=== PATIENT | female | born 1980 | race Caucasian/White ===

== ENCOUNTER 2018-08-28 09:10 | Emergency (ER) | payer OTHER ==
[~2018-08-28] VITALS: Ht 152.4 cm; Wt 81.0 kg
[~2018-08-28 09:10] MED LIST: ERYTHROMYCIN BAS1 GM OD; LORTAB 7.57.5 MG PO; METHERGINE0.2 MG PO; MUCINEX600 MG PO; ZOFRAN4 MG/TAB PO
[2018-08-28 09:49] LABS: IMMATURE GRANULOCYTES 0.3 % (0.0-5.0); MEAN CORPUSCULAR HGB 31.3 pG CALC (26.0-32.0); MEAN CORPUSCULAR HGB CONC 34.3 g/L CALC (32.0-36.0); NEUT# 4.68 thou/uL (2.00-7.15); RED BLOOD COUNT 4.48 mill/uL (4.20-5.60); RED CELL DISTRI WIDTH 12.2 % (11.5-15.5)
[2018-08-28 09:56] LABS: HEMATOCRIT 40.8 % (37.0-47.0); MEAN CELL VOLUME 91.1 fL CALC (80.0-100.0)
[2018-08-28 10:20] LABS: ALBUMIN 4.1 g/dL (3.2-5.0); ALKALINE PHOSPHATASE 60 u/l (38-126); ANION GAP 12 (6-22 (CALC)); BILIRUBIN, TOTAL 0.4 mg/dL (0.0-1.4); BUN 10 mg/dL (7-17); BUN/CREATININE RATIO 12 (12-20 (CALC)); CARBON DIOXIDE 25 mmol/l (22-30); CHLORIDE 107 mmol/l (95-108); CREATININE 0.8 mg/dL (0.5-1.0); GFR > 60 ML/MIN (>=60 (CALC)); GFR FOR AFR.AMER. > 60 ML/MIN (>=60 (CALC)); LIPASE 71 u/l (23-300); POTASSIUM 4.2 mmol/l (3.5-5.1); SGOT/AST 21 u/l (14-36); SODIUM 140 mmol/l (137-146); TOTAL PROTEIN 7.3 g/dL (6.3-8.2)
[2018-08-28 10:44] LABS: URINE BILIRUBIN - DIPSTICK NEGATIVE (NEGATIVE); URINE BLOOD DIPSTICK LARGE (NEGATIVE); URINE COLOR YELLOW; URINE GLUCOSE - DIPSTICK NEGATIVE (NEGATIVE); URINE KETONE NEGATIVE (NEGATIVE); URINE NITRITE - DIPSTICK NEGATIVE (Negative); URINE PROTEIN - DIPSTICK NEGATIVE (NEG-TRACE); URINE SPECIFIC GRAVITY <=1.005; URINE UROBILINOGEN - DIPSTICK 0.2 E.U./dL (0.2)
[2018-08-28 10:47] LABS: BARBITURATES NEGATIVE (NEGATIVE); COCAINE NEGATIVE (NEGATIVE); METHADONE NEGATIVE (NEGATIVE); OXCYCODONE NEGATIVE (NEGATIVE); TETRAHYDROCANNABIONOL NEGATIVE (NEGATIVE); TRICYLIC ANTIDEPRESSANTS NEGATIVE (NEGATIVE)
[2018-08-28 10:49] LABS: URINE LEUK ESTERASE SMALL (NEGATIVE)
[2018-08-28 10:56] LABS: URINE BACTERIA FEW hpf; URINE RBC TNTC RBC/hpf (0-5); URINE SQUAMOUS EPITHELIAL CELL FEW EPI/hpf (0-FEW)
[2018-08-28] MEDS ORDERED: KEFLEX500 M1 PO (11:00)
[2018-08-28] MEDS ORDERED: TAM75CAP PO (11:00)
[2018-08-28 11:08] VITALS: BP 129/99
== END 2018-08-28 11:24 | DRG 153 ==
LOC: ED 09:10
PROVIDERS: Emergency Medicine
DX: J11.1 Influenza due to unidentified influenza virus with other respiratory manifestations (principal)

== ENCOUNTER 2019-02-14 07:14 | Emergency (ER) | payer SELFPAY ==
[~2019-02-14 07:14] MED LIST changes: +KEFLEX500 M1 PO; +TAM75CAP PO
== END 2019-02-14 07:25 | disposition left against medical advice (07) | DRG 951 ==
LOC: ED 07:14 → LWOBS 07:24
DX: Z91.19 Patient's noncompliance with other medical treatment and regimen (principal)

== ENCOUNTER 2019-03-01 21:37 | Emergency (ER) | payer SELFPAY ==
[~2019-03-01] VITALS: Ht 152.4 cm; Wt 60.0 kg
[2019-03-01 22:30] LABS: URINE BILIRUBIN - DIPSTICK NEGATIVE (NEGATIVE); URINE BLOOD DIPSTICK NEGATIVE (NEGATIVE); URINE COLOR YELLOW; URINE GLUCOSE - DIPSTICK NEGATIVE (NEGATIVE); URINE KETONE NEGATIVE (NEGATIVE); URINE LEUK ESTERASE NEGATIVE (NEGATIVE); URINE NITRITE - DIPSTICK NEGATIVE (Negative); URINE PROTEIN - DIPSTICK NEGATIVE (NEG-TRACE); URINE SPECIFIC GRAVITY <=1.005; URINE UROBILINOGEN - DIPSTICK 0.2 E.U./dL (0.2)
[2019-03-01] MEDS ORDERED: AMOXICILLIN500 MG PO (22:56)
[2019-03-01 23:30] VITALS: BP 129/91
== END 2019-03-01 23:31 | disposition home or self-care (01) | DRG 556 ==
LOC: ED 21:37
PROVIDERS: Family Medicine
DX: M25.572 Pain in left ankle and joints of left foot (principal); M54.5 Low back pain; J03.90 Acute tonsillitis, unspecified

== ENCOUNTER 2019-06-09 18:36 | Emergency (ER) | payer SELFPAY ==
[~2019-06-09 18:36] MED LIST changes: +AMOXICILLIN500 MG PO
== END 2019-06-09 18:48 | disposition left against medical advice (07) | DRG 951 ==
LOC: ED 18:36 → LWOBS 18:48
DX: Z53.21 Procedure and treatment not carried out due to patient leaving prior to being seen by health care provider (principal)

== ENCOUNTER 2020-04-30 11:34 | Emergency (ER) | payer SELFPAY ==
[~2020-04-30] VITALS: Ht 152.4 cm; Wt 81.0 kg
[2020-04-30] MEDS ORDERED: AMOXICILLIN500 M2 PO (12:37)
[2020-04-30 12:55] VITALS: BP 110/73
== END 2020-04-30 12:55 | disposition home or self-care (01) | DRG 159 ==
LOC: ED 11:34
DX: S03.2XXA Dislocation of tooth, initial encounter (principal); S00.511A Abrasion of lip, initial encounter; S80.812A Abrasion, left lower leg, initial encounter; S16.1XXA Strain of muscle, fascia and tendon at neck level, initial encounter; Y04.2XXA Assault by strike against or bumped into by another person, initial encounter; Y92.009 Unspecified place in unspecified non-institutional (private) residence as the place of occurrence of the external cause

== ENCOUNTER 2021-02-15 01:26 | Emergency (ER) | payer MEDICAID ==
[~2021-02-15 01:26] MED LIST changes: +AMOXICILLIN500 M2 PO
[2021-02-16] MEDS ORDERED: ZYRTEC10 MG PO (03:20)
== END 2021-02-15 01:36 | disposition left against medical advice (07) | DRG 951 ==
LOC: ED 01:26 → LWOBS 01:36
DX: Z53.21 Procedure and treatment not carried out due to patient leaving prior to being seen by health care provider (principal)

== ENCOUNTER 2021-02-16 02:31 | Observation (INO) | payer MEDICAID ==
[2021-02-16] MEDS ORDERED: ZYRTEC10 MG PO (03:20)
[2021-02-16 03:53] LABS: URINE BILIRUBIN - DIPSTICK NEGATIVE (NEGATIVE); URINE BLOOD DIPSTICK NEGATIVE (NEGATIVE); URINE COLOR YELLOW; URINE GLUCOSE - DIPSTICK NEGATIVE (NEGATIVE); URINE KETONE NEGATIVE (NEGATIVE); URINE LEUK ESTERASE NEGATIVE (NEGATIVE); URINE PROTEIN - DIPSTICK 30 mg/dL (NEG-TRACE); URINE UROBILINOGEN - DIPSTICK 0.2 E.U./dL (0.2)
[2021-02-16 03:58] LABS: URINE NITRITE - DIPSTICK NEGATIVE (Negative)
[2021-02-16 04:00] LABS: URINE WBC 0-2 WBC/hpf (0-5)
[2021-02-16 04:01] LABS: URINE BACTERIA FEW hpf; URINE EPITHELIAL CELLS MODERATE EPI/hpf (0-FEW)
[2021-02-16 04:12] LABS: HEMOGLOBIN 14.2 g/dl (12.0-16.0); IMMATURE GRANULOCYTES 0.1 % (0.0-5.0); MEAN CORPUSCULAR HGB 31.7 pG CALC (26.0-32.0); NEUT# 7.03 thou/uL (2.00-7.15); RED BLOOD COUNT 4.48 mill/uL (4.20-5.60); RED CELL DISTRI WIDTH 13.2 % (11.5-15.5)
[2021-02-16 04:27] LABS: ALBUMIN 3.6 g/dL (3.2-5.0); ALKALINE PHOSPHATASE 76 u/l (38-126); ANION GAP 11 (6-22 (CALC)); BUN 12 mg/dL (7-17); BUN/CREATININE RATIO 12 (12-20 (CALC)); CARBON DIOXIDE 23 mmol/l (22-30); CHLORIDE 105 mmol/l (95-108); GFR > 60 ML/MIN (>=60 (CALC)); GFR FOR AFR.AMER. > 60 ML/MIN (>=60 (CALC)); SGOT/AST 27 u/l (14-36); SODIUM 135 mmol/l (137-146); TOTAL PROTEIN 6.6 g/dL (6.3-8.2)
[2021-02-16 04:29] LABS: BILIRUBIN, TOTAL 0.6 mg/dL (0.0-1.4)
[2021-02-16 04:39] LABS: MYOGLOBIN 61 ng/mL (0 - 62)
[2021-02-16 08:20] VITALS: BP 138/97
[2021-02-16 12:27] VITALS: BP 150/109
[2021-02-16 14:45] VITALS: BP 144/95
[2021-02-16 19:00] VITALS: BP 133/99
[2021-02-17 04:30] VITALS: BP 122/65; BP 137/96
[2021-02-17 05:44] LABS: HEMATOCRIT 41.3 % (37.0-47.0); HEMOGLOBIN 13.5 g/dl (12.0-16.0); MEAN CELL VOLUME 96.9 fL CALC (80.0-100.0); MEAN CORPUSCULAR HGB 31.7 pG CALC (26.0-32.0); MEAN CORPUSCULAR HGB CONC 32.7 g/dL CAL (32.0-36.0); RED BLOOD COUNT 4.26 mill/uL (4.20-5.60); RED CELL DISTRI WIDTH 13.3 % (11.5-15.5)
[2021-02-17 06:25] LABS: BUN 14 mg/dL (7-17); BUN/CREATININE RATIO 13 (12-20 (CALC)); CALCULATED LDLCHOLESTEROL 60 mg/dL (62-129 (CALC)); CHLORIDE 99 mmol/l (95-108); CHOLESTEROL HDL RATIO 2.3 (<4.4 (CALC)); GFR > 60 ML/MIN (>=60 (CALC)); GFR FOR AFR.AMER. > 60 ML/MIN (>=60 (CALC)); HDL CHOLESTEROL 55 mg/dL (>=40); MAGNESIUM 1.6 mg/dL (1.6-2.3); POTASSIUM 3.7 mmol/l (3.5-5.1); SODIUM 134 mmol/l (137-146); TOTAL CHOLESTEROL 129 mg/dl (0-199); TOTAL TRIGLYCERIDES 72 mg/dl (30-149); VLDL CHOLESTROL 14 mg/dl (1-41 (CALC))
[2021-02-17 06:29] LABS: ANION GAP 11 (6-22 (CALC)); CARBON DIOXIDE 28 mmol/l (22-30)
[2021-02-17 07:32] VITALS: BP 128/83
[2021-02-17 10:50] VITALS: BP 127/94
[2021-02-17] MEDS ORDERED: LOPRESSOR25 MG PO (11:51)
[2021-02-17] MEDS ORDERED: LISINOPRIL20 M1 PO (11:51)
[2021-02-17] MEDS ORDERED: LASIX20 MG PO (11:51)
[2021-02-17 12:33] VITALS: BP 150/90
[2021-02-17 15:52] VITALS: BP 90/55
[2021-02-17 18:57] VITALS: BP 102/68
[2021-02-18 00:01] VITALS: BP 110/62
[2021-02-18 03:43] VITALS: BP 116/68
[2021-02-18 05:21] LABS: HEMATOCRIT 45.1 % (37.0-47.0); HEMOGLOBIN 14.7 g/dl (12.0-16.0); MEAN CELL VOLUME 97.4 fL CALC (80.0-100.0); MEAN CORPUSCULAR HGB 31.7 pG CALC (26.0-32.0); MEAN CORPUSCULAR HGB CONC 32.6 g/dL CAL (32.0-36.0); RED BLOOD COUNT 4.63 mill/uL (4.20-5.60); RED CELL DISTRI WIDTH 13.2 % (11.5-15.5)
[2021-02-18 05:33] LABS: ANION GAP 11 (6-22 (CALC)); BUN 18 mg/dL (7-17); BUN/CREATININE RATIO 17 (12-20 (CALC)); CARBON DIOXIDE 25 mmol/l (22-30); CHLORIDE 99 mmol/l (95-108); GFR > 60 ML/MIN (>=60 (CALC)); GFR FOR AFR.AMER. > 60 ML/MIN (>=60 (CALC)); SODIUM 131 mmol/l (137-146)
[2021-02-18 08:00] VITALS: BP 128/82
[2021-02-18 10:49] VITALS: BP 118/82
== END 2021-02-18 12:41 | disposition home or self-care (01) ==
LOC: ED 02:31 → ED-I 06:10 → ED 06:36 → MS2 06:36
PROVIDERS: Emergency Medicine; Nurse Practitioner; ADMIT Hospitalist; ATTEND Hospitalist
DX: I11.0 Hypertensive heart disease with heart failure (principal); I50.9 Heart failure, unspecified; R09.02 Hypoxemia; I95.9 Hypotension, unspecified; R06.83 Snoring; F15.10 Other stimulant abuse, uncomplicated; Z20.822 Contact with and (suspected) exposure to COVID-19
CPT/HCPCS: G0378; J1650; Q9967

== ENCOUNTER 2022-03-22 19:21 | Inpatient (IN) | payer MEDICAID ==
[2022-03-22] VITALS (14 sets, daily range): BP systolic 82–183; BP diastolic 59–148
[~2022-03-22] VITALS: Ht 152.4 cm; Wt 81.8 kg
[~2022-03-22 19:21] MED LIST changes: +LASIX20 MG PO; +LISINOPRIL20 M1 PO; +LOPRESSOR25 MG PO; +ZYRTEC10 MG PO
[2022-03-22] MEDS ORDERED: LASIX 40 MG TAB40 MG PO (20:22)
[2022-03-22] MEDS ORDERED: DILTIAZEM30 MG PO (20:22)
[2022-03-22] MEDS ORDERED: LISINOPRIL10 MG PO (20:23)
[2022-03-22 20:25] LABS: HEMATOCRIT 49.8 % (37.0-47.0); HEMOGLOBIN 16.3 g/dl (12.0-16.0); IMMATURE GRANULOCYTES 0.1 % (0.0-5.0); MEAN CELL VOLUME 94.3 fL CALC (80.0-100.0); MEAN CORPUSCULAR HGB 30.9 pG CALC (26.0-32.0); MEAN CORPUSCULAR HGB CONC 32.7 g/dL CAL (32.0-36.0); NEUT# 4.68 thou/uL (2.00-7.15); RED BLOOD COUNT 5.28 mill/uL (4.20-5.60); RED CELL DISTRI WIDTH 14.5 % (11.5-15.5)
[2022-03-22 20:39] LABS: ALBUMIN 4.3 g/dL (3.2-5.0); BUN 15 mg/dL (7-17); BUN/CREATININE RATIO 14 (12-20 (CALC)); CHLORIDE 103 mmol/l (95-108); CREATININE 1.1 mg/dL (0.5-1.0); GFR FOR AFR.AMER. > 60 ML/MIN (>=60 (CALC)); GFR OTHER RACES 54 ML/MIN (>=60 (CALC)); POTASSIUM 4.5 mmol/l (3.5-5.1); SODIUM 133 mmol/l (137-146)
[2022-03-22 20:41] LABS: INTERNATIONAL NORMALIZED RATIO 1.3 RATIO (0.7-1.3); PROTHROMBIN TIME 12.6 SECONDS (9.0-12.5)
[2022-03-22 20:50] LABS: D-DIMER 0.88 mg/L (0.19-0.60); MYOGLOBIN 44 ng/mL (0 - 62)
[2022-03-22 20:57] LABS: ALKALINE PHOSPHATASE 178 u/l (38-126); ANION GAP 19 (6-22 (CALC)); BILIRUBIN, TOTAL 2.1 mg/dL (0.0-1.4); CARBON DIOXIDE 16 mmol/l (22-30); SGOT/AST 48 u/l (14-36); TOTAL PROTEIN 8.2 g/dL (6.3-8.2)
[2022-03-23] VITALS (162 sets, daily range): BP systolic 27–207; BP diastolic 13–184
[2022-03-23 02:05] LABS: URINE BILIRUBIN - DIPSTICK SMALL (NEGATIVE); URINE BLOOD DIPSTICK NEGATIVE (NEGATIVE); URINE COLOR YELLOW; URINE GLUCOSE - DIPSTICK NEGATIVE (NEGATIVE); URINE KETONE TRACE mg/dL (NEGATIVE); URINE LEUK ESTERASE NEGATIVE (NEGATIVE); URINE NITRITE - DIPSTICK NEGATIVE (Negative); URINE PROTEIN - DIPSTICK 100 mg/dL (NEG-TRACE); URINE SPECIFIC GRAVITY >=1.030
[2022-03-23 02:06] LABS: URINE RBC 0-2 RBC/hpf (0-5)
[2022-03-23 02:07] LABS: URINE AMORPH SEDIMENT MANY hpf (NONE-FEW); URINE MUCUS FEW hpf (NONE-FEW); URINE SQUAMOUS EPITHELIAL CELL FEW EPI/hpf (0-FEW); URINE WBC 0-2 WBC/hpf (0-5)
[2022-03-23] MEDS ORDERED: TYLENOL500 MG PO (10:02)
[2022-03-23] MEDS ORDERED: COREG6.25 MG PO (10:06)
[2022-03-23 20:30] LABS: HEMATOCRIT 49.5 % (37.0-47.0); HEMOGLOBIN 15.5 g/dl (12.0-16.0); IMMATURE GRANULOCYTES 0.4 % (0.0-5.0); MEAN CELL VOLUME 98.6 fL CALC (80.0-100.0); MEAN CORPUSCULAR HGB 30.9 pG CALC (26.0-32.0); MEAN CORPUSCULAR HGB CONC 31.3 g/dL CAL (32.0-36.0); NEUT# 13.16 thou/uL (2.00-7.15); RED BLOOD COUNT 5.02 mill/uL (4.20-5.60); RED CELL DISTRI WIDTH 14.8 % (11.5-15.5)
[2022-03-23 20:55] LABS: ALBUMIN 3.8 g/dL (3.2-5.0); TOTAL PROTEIN 6.8 g/dL (6.3-8.2)
[2022-03-23 21:03] LABS: BILIRUBIN, TOTAL 3.7 mg/dL (0.0-1.4); CREATININE 2.3 mg/dL (0.5-1.0); POTASSIUM 5.5 mmol/l (3.5-5.1)
[2022-03-23 21:31] LABS: URINE BLOOD DIPSTICK SMALL (NEGATIVE); URINE COLOR YELLOW; URINE GLUCOSE - DIPSTICK NEGATIVE (NEGATIVE); URINE KETONE TRACE mg/dL (NEGATIVE); URINE LEUK ESTERASE NEGATIVE (NEGATIVE); URINE PROTEIN - DIPSTICK TRACE mg/dL (NEG-TRACE)
[2022-03-23 21:35] LABS: URINE BILIRUBIN - DIPSTICK SMALL (NEGATIVE); URINE NITRITE - DIPSTICK NEGATIVE (Negative)
[2022-03-23 21:40] LABS: URINE SQUAMOUS EPITHELIAL CELL MANY EPI/hpf (0-FEW); URINE WBC 0-2 WBC/hpf (0-5)
[2022-03-24] VITALS (81 sets, daily range): BP systolic 32–188; BP diastolic 12–146
[2022-03-24 00:41] LABS: ALBUMIN 3.2 g/dL (3.2-5.0); BILIRUBIN, TOTAL 3.4 mg/dL (0.0-1.4); CREATININE 2.2 mg/dL (0.5-1.0); TOTAL PROTEIN 5.8 g/dL (6.3-8.2)
[2022-03-24 00:43] LABS: POTASSIUM 5.3 mmol/l (3.5-5.1)
[2022-03-24 00:45] LABS: ACT PARTIAL THROMBO TIME 44.7 SECONDS (20.0-32.5)
[2022-03-24 00:48] LABS: INTERNATIONAL NORMALIZED RATIO 2.9 RATIO (0.7-1.3); PROTHROMBIN TIME 27.9 SECONDS (9.0-12.5)
[2022-03-24 05:17] LABS: HEMATOCRIT 47.4 % (37.0-47.0); IMMATURE GRANULOCYTES 1.2 % (0.0-5.0); MEAN CELL VOLUME 99.2 fL CALC (80.0-100.0); MEAN CORPUSCULAR HGB 31.4 pG CALC (26.0-32.0); MEAN CORPUSCULAR HGB CONC 31.6 g/dL CAL (32.0-36.0); NEUT# 14.77 thou/uL (2.00-7.15); RED BLOOD COUNT 4.78 mill/uL (4.20-5.60); RED CELL DISTRI WIDTH 14.9 % (11.5-15.5)
[2022-03-24 05:43] LABS: ALBUMIN 3.2 g/dL (3.2-5.0); BILIRUBIN, TOTAL 3.5 mg/dL (0.0-1.4); CREATININE 2.2 mg/dL (0.5-1.0); MAGNESIUM 1.8 mg/dL (1.6-2.3); POTASSIUM 4.5 mmol/l (3.5-5.1); TOTAL PROTEIN 5.7 g/dL (6.3-8.2)
[2022-03-24 06:09] LABS: INTERNATIONAL NORMALIZED RATIO 2.4 RATIO (0.7-1.3); PROTHROMBIN TIME 23.3 SECONDS (9.0-12.5)
== END 2022-03-24 16:15 | DRG 871 ==
LOC: ED 19:21 → ED-I 22:20 → ED 22:33 → MS2 22:34 → ICU 03-23 05:06
PROVIDERS: Family Medicine; ADMIT Internal Medicine; ATTEND Internal Medicine
PROC: 05JY3ZZ Inspection of Upper Vein, Percutaneous Approach (ICD-10-PCS; principal; 2022-03-23)
PROC: 06JY3ZZ Inspection of Lower Vein, Percutaneous Approach (ICD-10-PCS; 2022-03-23)
PROC: 3E033XZ Introduction of Vasopressor into Peripheral Vein, Percutaneous Approach (ICD-10-PCS; 2022-03-23)
PROC: 02HV33Z Insertion of Infusion Device into Superior Vena Cava, Percutaneous Approach (ICD-10-PCS; 2022-03-23)
PROC: B518ZZA Fluoroscopy of Superior Vena Cava, Guidance (ICD-10-PCS; 2022-03-23)
PROC: 0T9B70Z Drainage of Bladder with Drainage Device, Via Natural or Artificial Opening (ICD-10-PCS; 2022-03-24)
PROC: 5A09357 Assistance with Respiratory Ventilation, Less than 24 Consecutive Hours, Continuous Positive Airway Pressure (ICD-10-PCS; 2022-03-24)
DX: A41.9 Sepsis, unspecified organism (principal); J18.9 Pneumonia, unspecified organism; N17.0 Acute kidney failure with tubular necrosis; R65.21 Severe sepsis with septic shock; K72.00 Acute and subacute hepatic failure without coma; J96.01 Acute respiratory failure with hypoxia; E87.2 Acidosis; E87.1 Hypo-osmolality and hyponatremia; D68.9 Coagulation defect, unspecified; I11.0 Hypertensive heart disease with heart failure; I50.9 Heart failure, unspecified; E86.9 Volume depletion, unspecified; E16.2 Hypoglycemia, unspecified; F15.10 Other stimulant abuse, uncomplicated; E87.5 Hyperkalemia; Z20.822 Contact with and (suspected) exposure to COVID-19
CPT/HCPCS: J0692; J1650; J3370; Q9967